=== PATIENT | male | born 1960 | race Caucasian/White ===

== ENCOUNTER → 2020-09-27 14:14 | Outpatient (CLI) | payer BC, MEDICARE, SELFPAY ==
[2020-09-27 14:42] LABS: Chloride 89 mmol/L (98-107); Potassium 4.2 mmoL/L (3.5-5.1); Sodium 130 mmol/L (136-145)
[2020-09-27 14:44] LABS: Alanine Aminotransferase 105 U/L (12-78); Aspartate Amino Transferase 190 U/L (17-59); Blood Urea Nitrogen 10 mg/dl (9-20); Estimated Glomerular Filt Rate 115 ml/min (>60); GFR (African American) 139 ML/MIN (>60)
[2020-09-27 14:45] LABS: Albumin Level 4.4 g/dl (3.5-5.0); Albumin/Globulin Ratio 1.4 (1.1-1.8); Alkaline Phosphatase 214 U/L (38-126); Anion Gap 17.2 mEq/L (5-15); Bilirubin,Total 3.8 mg/dl (0.2-1.3); Calcium 9.5 mg/dl (8.4-10.2); Carbon Dioxide 28 mmol/L (22.0-30.0); Chol/HDL Ratio 3.3 (1-3.5); Cholesterol 167 mg/dl (140-200); Globulin 3.2 g/dL (1.3-3.2); HDL Cholesterol 50 mg/dl (40-60); Total Protein,Serum 7.6 g/dl (6.3-8.2); Triglycerides 236 mg/dl (30-150); VLDL Cholesterol 47 mg/dL (0-40)
[2020-09-27 14:47] LABS: Basophils % 1.1 % (0.1-2.0); Eosinophils # 0.1 K/mm3 (0.0-0.4); Eosinophils % 1.5 % (0.1-12.0); Hematocrit 49.7 % (42.0-52.0); Hemoglobin 16.8 g/dL (14.1-18.0); Lymphocytes # 1.3 K/mm3 (0.7-4.5); Lymphocytes % 33.3 % (10-50); Mean Corpuscular HGB Conc 33.8 g/dL (31.8-35.4); Mean Corpuscular Volume 100.7 fl (80-94); Mean Platelet Volume 9.5 fl (7.4-10.4); Monocytes # 0.3 K/mm3 (0.1-1.0); Monocytes % 8.8 % (1.7-9.3); Neutrophils # 2.1 K/mm3 (1.8-7.8); Neutrophils % 55.2 % (37.0-80.0); Platelet Count 132 K/mm3 (142-424); Red Blood Count 4.93 M/mm3 (4.60-6.20); White Blood Count 3.9 K/mm3 (4.8-10.8)
[2020-09-27 14:50] LABS: Glucose 528 mg/dl (74-100)
[2020-09-27 14:56] LABS: Direct LDL Cholesterol 67.34 mg/dL (100-129)
[2020-09-27 14:58] LABS: Creatinine,Urine Random 15 mg/dL (Not Estab.)
[2020-09-27 15:02] LABS: T4 (Thyroxine) 10.3 ug/dl (5.53-11.0)
[2020-09-27 15:11] LABS: Hemoglobin A1C 11.8 % (4.0-6.0); Microalbumin/Creatinine Ratio 1723.3
[2020-09-27 15:51] LABS: Prostate Specific Ag Screen 0.8 ng/ml (0.0-4.0)
[2020-10-02 07:30] LABS: Hep A Ab, IgM Negative (Negative); Hepatitis B Core Antibody IgM Negative (Negative); Hepatitis B Surface Antigen Negative (Negative)
[2020-10-02 08:08] LABS: Hepatitis C Antibody <0.1 s/co ratio (0.0-0.9)
== END ==
PROVIDERS: Visit Provider Family Medicine
DX: E11.9 Type 2 diabetes mellitus without complications (principal); R79.89 Other specified abnormal findings of blood chemistry; Z12.5 Encounter for screening for malignant neoplasm of prostate; Z79.4 Long term (current) use of insulin
CPT/HCPCS: 80053; 80061; 80074; 82043; 82570; 83036; 84436; 85025; G0103

== ENCOUNTER → 2020-10-21 08:15 | Outpatient (CLI) | payer BC, MEDICARE, SELFPAY ==
--- NOTE | 2020-10-21 08:15 | US_ITS ---
PROCEDURE: US LIVER CLINICAL INDICATION: elevated lfts COMPARISON: No exams were available for comparison FINDINGS: PANCREAS: Unremarkable. No obvious mass or abnormal fluid collection. No ductal dilatation LIVER: No focal liver lesions demonstrated. Nonspecific mild coarse echogenicity of the liver.. No intrahepatic biliary ductal dilatation evident. There is appropriate direction of blood flow within a non dilated portal vein RIGHT KIDNEY: Unremarkable. Normal size and echogenicity. No hydronephrosis GALLBLADDER: Gallstones are present. No gallbladder wall thickening, pericholecystic fluid, or biliary dilatation is evident. IMPRESSION: Cholelithiasis Dictated by: Varghese Resendez MD 10/21/2020 17:16 Varghese Resendez MD in [place] 10/21/2020 17:16
== END ==
PROVIDERS: PCP Family Medicine; Visit Provider Family Medicine
DX: R74.8 Abnormal levels of other serum enzymes (principal)
CPT/HCPCS: 76705

== ENCOUNTER → 2021-01-28 19:20 | Outpatient (CLI) | payer BC, MEDICARE, SELFPAY | PROVIDERS: Visit Provider Family Medicine | DX: B95.62 Methicillin resistant Staphylococcus aureus infection as the cause of diseases classified elsewhere; L03.115 Cellulitis of right lower limb; B96.1 Klebsiella pneumoniae [K. pneumoniae] as the cause of diseases classified elsewhere | CPT/HCPCS: 87070; 87077; 87186; 87205 ==

== ENCOUNTER → 2021-02-14 14:07 | Outpatient (CLI) | payer BC, MEDICARE, SELFPAY ==
[2021-02-14 14:45] LABS: Chloride 95 mmol/L (98-107); Potassium 3.8 mmoL/L (3.5-5.1); Sodium 137 mmol/L (136-145)
[2021-02-14 14:48] LABS: Alanine Aminotransferase 82 U/L (12-78); Alkaline Phosphatase 217 U/L (38-126); Amylase 98 U/L (30-110); Anion Gap 16.8 mEq/L (5-15); Aspartate Amino Transferase 188 U/L (17-59); Blood Urea Nitrogen 8 mg/dl (9-20); Calcium 9.5 mg/dl (8.4-10.2); Carbon Dioxide 29 mmol/L (22.0-30.0); Estimated Glomerular Filt Rate 99 ml/min (>60); GFR (African American) 119 ML/MIN (>60); Glucose 307 mg/dl (74-100); Lipase 343 U/L (23-300)
[2021-02-14 14:49] LABS: Albumin Level 4.4 g/dl (3.5-5.0); Albumin/Globulin Ratio 1.3 (1.1-1.8); Globulin 3.3 g/dL (1.3-3.2); Total Protein,Serum 7.7 g/dl (6.3-8.2)
[2021-02-14 14:50] LABS: Basophils # 0.1 K/mm3 (0-0.2); Basophils % 1.3 % (0.1-2.0); Eosinophils # 0.1 K/mm3 (0.0-0.4); Hematocrit 49.8 % (42.0-52.0); Hemoglobin 16.1 g/dL (14.1-18.0); Lymphocytes # 1.6 K/mm3 (0.7-4.5); Lymphocytes % 36.5 % (10-50); Mean Corpuscular HGB Conc 32.3 g/dL (31.8-35.4); Mean Corpuscular Hemoglobin 32.1 pg (27.0-31.2); Mean Corpuscular Volume 99.5 fl (80-94); Mean Platelet Volume 8.8 fl (7.4-10.4); Monocytes # 0.4 K/mm3 (0.1-1.0); Monocytes % 9.6 % (1.7-9.3); Neutrophils # 2.2 K/mm3 (1.8-7.8); Neutrophils % 49.5 % (37.0-80.0); Platelet Count 152 K/mm3 (142-424); Red Cell Distribution Width 12.9 % (11.5-17.5); White Blood Count 4.3 K/mm3 (4.8-10.8)
[2021-02-16 14:35] LABS: Hep A Ab, IgM Negative (Negative); Hepatitis B Core Antibody IgM Negative (Negative); Hepatitis B Surface Antigen Negative (Negative)
[2021-02-16 22:24] LABS: Hepatitis C Antibody <0.1 s/co ratio (0.0-0.9)
== END ==
PROVIDERS: Family Medicine; Visit Provider Surgery
DX: R74.8 Abnormal levels of other serum enzymes (principal); E11.9 Type 2 diabetes mellitus without complications; K82.9 Disease of gallbladder, unspecified; Z79.4 Long term (current) use of insulin; K74.60 Unspecified cirrhosis of liver
CPT/HCPCS: 80053; 80074; 82150; 83036; 83690; 85025

== ENCOUNTER → 2021-05-20 13:21 | Outpatient (CLI) | payer BC, MEDICARE, SELFPAY ==
[2021-05-20 13:32] LABS: Basophils # 0.1 K/mm3 (0-0.2); Basophils % 1.2 % (0.1-2.0); Eosinophils # 0.1 K/mm3 (0.0-0.4); Eosinophils % 1.9 % (0.1-12.0); Hematocrit 48.8 % (42.0-52.0); Hemoglobin 16.4 g/dL (14.1-18.0); Lymphocytes % 34.8 % (10-50); Mean Corpuscular HGB Conc 33.7 g/dL (31.8-35.4); Mean Corpuscular Hemoglobin 32.5 pg (27.0-31.2); Mean Corpuscular Volume 96.7 fl (80-94); Mean Platelet Volume 10.3 fl (7.4-10.4); Monocytes # 0.4 K/mm3 (0.1-1.0); Monocytes % 6.2 % (1.7-9.3); Neutrophils # 3.2 K/mm3 (1.8-7.8); Neutrophils % 55.9 % (37.0-80.0); Platelet Count 183 K/mm3 (142-424); Red Blood Count 5.04 M/mm3 (4.60-6.20); Red Cell Distribution Width 13.1 % (11.5-17.5); White Blood Count 5.6 K/mm3 (4.8-10.8)
[2021-05-20 14:03] LABS: Hemoglobin A1C 7.4 % (4.0-6.0)
[2021-05-20 14:06] LABS: Chloride 98 mmol/L (98-107); Sodium 139 mmol/L (136-145)
[2021-05-20 14:09] LABS: Alanine Aminotransferase 39 U/L (12-78); Albumin Level 4.8 g/dl (3.5-5.0); Albumin/Globulin Ratio 1.5 (1.1-1.8); Aspartate Amino Transferase 56 U/L (17-59); Blood Urea Nitrogen 19 mg/dl (9-20); Carbon Dioxide 28 mmol/L (22.0-30.0); Cholesterol 133 mg/dl (140-200); Estimated Glomerular Filt Rate 62 ml/min (>60); GFR (African American) 74 ML/MIN (>60); Globulin 3.3 g/dL (1.3-3.2); Total Protein,Serum 8.1 g/dl (6.3-8.2); Triglycerides 115 mg/dl (30-150); VLDL Cholesterol 23 mg/dL (0-40)
[2021-05-20 14:10] LABS: Calcium 10.1 mg/dl (8.4-10.2); Glucose 200 mg/dl (74-100)
[2021-05-20 14:39] LABS: Creatinine,Urine Random 51 mg/dL (Not Estab.)
[2021-05-20 14:41] LABS: Direct LDL Cholesterol 55.42 mg/dL (100-129)
[2021-05-20 15:56] LABS: Alkaline Phosphatase 104 U/L (38-126); Bilirubin,Total 0.9 mg/dl (0.2-1.3)
[2021-05-20 20:53] LABS: Chol/HDL Ratio 2.3 (1-3.5); HDL Cholesterol 59 mg/dl (40-60)
== END ==
PROVIDERS: Nurse Practitioner Family; Visit Provider Family Medicine
DX: E11.9 Type 2 diabetes mellitus without complications (principal); I10 Essential (primary) hypertension; Z79.4 Long term (current) use of insulin
CPT/HCPCS: 80053; 80061; 82043; 82570; 83036; 85025

== ENCOUNTER → 2022-06-26 07:02 | Outpatient (CLI) | payer BC, MEDICARE, SELFPAY ==
[2022-06-26 20:25] LABS: Hemoglobin A1C 8.2 % (4.0-6.0)
[2022-06-26 21:16] LABS: Thyroid Stimulating Hormone 2.19 uIU/mL (0.465-4.68)
== END ==
PROVIDERS: PCP Family Medicine; Visit Provider Family Medicine
DX: E11.59 Type 2 diabetes mellitus with other circulatory complications (principal); Z79.4 Long term (current) use of insulin; Z79.899 Other long term (current) drug therapy
CPT/HCPCS: 83036; 84443